=== PATIENT | male | born 1995 | race African-American/Black ===

== ENCOUNTER 2021-08-25 15:26 | Emergency (ER) | payer SELFPAY ==
[2021-08-25] MEDS ORDERED: Pantoprazole 40 MG in Sodium Chloride 0.9% 10 ML IV ONE (15:40)
[2021-08-25] MEDS ORDERED: Sodium Chloride 0.9% 10 ML Syringe FLUSH PRN (15:40)
[2021-08-25] MEDS ORDERED: Sodium Chloride 0.9% 2.5 ML Syringe FLUSH PRN (15:40)
[2021-08-25] MEDS ORDERED: Ondansetron 4 MG/2 ML SDV IVPUSH ONE (15:40)
--- NOTE | 2021-08-25 15:45 | EDM.PDOC ---
<Kilo Puri - Last Filed: 08/25/21 19:13> ED HPI GENERAL MEDICAL PROBLEM - General Stated Complaint: CHEST PAIN Time Seen by Provider: 08/25/21 15:30 - History of Present Illness INITIAL COMMENTS - FREE TEXT/NARRATIVE: History of present illness: [] Patient has not been throwing up for several days. Everything he eats he throws up. He has intermittent sharp pain in his chest that lasts only briefly and just is secondary to that happens once a day. He self throws up 3-4 times a day for 4 days. He had a problem similar a few years ago and had a GI work-up and said he had very bad stomach problems and was on medicine for it for a short time. He says he passed out because of it and thinks that was because of blood loss from his stomach. The patient does not smoke. Patient does not drink alcohol. Patient lives in [place], [address] is currently [place] from which he drives to [place] to work. He has been in town for 2 weeks. Review of systems: As per history of present illness and below otherwise all systems reviewed and negative. Past medical history: As per history of present illness and as reviewed below otherwise noncontributory. Surgical history: As per history of present illness and as reviewed below otherwise noncontributory. Social history: No reported history of drug or alcohol abuse. Family history: As per history of present illness and as reviewed below otherwise noncontributory. Physical exam: Constitutional - well developed, well-nourished and in no acute distress HEENT - normocephalic, no evidence of trauma - external nose and mouth normal - no mass in neck and no JVD - mucosae moist EYES - full EOM, PERRL, no icterus - no evidence of inflammation, injection, or drainage Respiratory - no respiratory distress, equal bilateral expansion, lungs clear to auscultation and no abnormal lung sounds Cardiovascular - Regular Rhythm with S1 and S2 appreciated and no murmur, gallop or rub. GI -tender epigastrium no guarding rebound no distention no organomegaly.-Bowel sounds are normal. Musculoskeletal no gross deformity of long bones or joints - no tenderness, swelling or edema Neurologic - Alert and oriented times four - CN II-XII grossly intact - motor sensory and coordination symmetrically normal Psychiatric - appropriate mood and affect with normal thought content Hematologic - No petechiae or purpura - mucosa appropriate color and sclera not pale - normal nail bed color and refill Integument - no rash or evidence of trauma - normal turgor Diagnostics: [] Therapeutics: [] Impression: [] Plan: [] Definitive disposition and diagnosis as appropriate pending reevaluation and review of above. chest Pain Score (Numeric/FACES): 3 - Related Data Allergies Allergy/AdvReac Type Severity Reaction Status Date / Time No Known Allergies Allergy Verified 08/25/21 15:32 Home Meds: Home Meds Colchicine 0.6 mg PO BID #180 capsule 08/25/21 [Rx] Ibuprofen 600 mg PO TID 14 Days #42 tablet 08/25/21 [Rx] Pantoprazole Sodium [Protonix] 40 mg PO DAILY #60 tablet. 08/25/21 [Rx] #1 Interpretation EKG Interpretation Comments: EKG done 08/25/2021 at 3:54 PM shows a sinus rhythm with a heart rate of 50 ND interval 156 [place] 77 late transition R wave with nonspecific ST elevation in early precordial leads. No prior for comparison. Impression cannot rule out recent infarct in the septal area. Course - Re-Assessments/Exams Free Text/Narrative Re-Assessment/Exam: 08/25/21 19:13 I discussed the case with [facility] and they do not have a bed for the patient. [facility] [place] [facility] for the patient. I discussed the case with Dr. Dong at [facility] in [place] and he had me send a copy of the EKG. Looking at the EKG and taking into consideration the patient low risk Dr. Dong felt this is most likely pericarditis and not an acute non-STEMI. He wants the patient to be checked for a repeat troponin II hours after the first. If this is not rising he wants the patient placed on colchicine 0.6 mg twice daily for 3 months ibuprofen 600 mg 3 times daily for 2 weeks and followed by cardiology. He does not want the patient admitted. I turned the patient over to my partner at the end of my shift. Departure - Departure Disposition: Home, Self-Care 01 Condition: Good Clinical Impression: Pericarditis - Discharge Information Prescriptions: Colchicine 0.6 mg PO BID #180 capsule Ibuprofen 600 mg PO TID 14 Days #42 tablet Pantoprazole Sodium [Protonix] 40 mg PO DAILY #60 tablet. Instructions: Pericarditis Referrals: PCP,None [Primary Care Provider] - Additional Instructions: You should take colchicine for 3 months ibuprofen for 2 weeks and you need to take Prilosec, Protonix or some such medicine to help prevent excess acid production in your stomack. A prescription for which was sent to the pharmacy. You need to take antacids ad senia. if you have stomach pain. You need to follow- up with cardiology promptly to have an echocardiogram. This can be arranged locally. [facility] - cardiology [address] [place], [place] [id number] If you need primary care you might try the following [facility] - Primary Care [address] [place] [id number] [address] The following information is given to patients seen in the emergency department who are being discharged to home. This information is to outline your options for follow-up care. We provide all patients seen in our emergency department with a follow-up referral. The need for follow-up, as well as the timing and circumstances, are variable depending upon the specifics of your emergency department visit. If you don't have a primary care physician on staff, we will provide you with a referral. We always advise you to contact your personal physician following an emergency department visit to inform them of the circumstance of the visit and for follow-up with them and/or the need for any referrals to a consulting specialist. The emergency department will also refer you to a specialist when appropriate. This referral assures that you have the opportunity for follow-up care with a specialist. All of these measure are taken in an effort to provide you with optimal care, which includes your follow-up. Under all circumstances we always encourage you to contact your private physician who remains a resource for coordinating your care. When calling for follow-up care, please make the office aware that this follow-up is from your recent emergency room visit. If for any reason you are refused follow-up, please contact the [facility] Emergency Department at and asked to speak to the emergency department charge nurse. <Earnest Sandoval - Last Filed: 08/25/21 20:06> ED ROS GENERAL - Review of Systems Review Of Systems: See Below ED EXAM, GENERAL - Physical Exam Exam: See Below Course - Vital Signs Last Recorded V/S: Last Vital Signs Temp 97 F 08/25/21 15:33 Pulse 92 08/25/21 19:47 Resp 18 08/25/21 19:47 BP 120/63 08/25/21 19:47 Pulse Ox 98 08/25/21 19:47 - Orders/Labs/Meds Orders: Active Orders 24 hr Category Date Time Status Heparin Sodium/0.45% NaCl [Heparin 25,000 Units in 1/2 Med 08/25/21 18:22 Active NS 500 ML] 500 ml IV STAT Sodium Chloride 0.9% [Saline Flush] Med 08/25/21 15:40 Active 10 ml FLUSH ASDIRECTED PRN Sodium Chloride 0.9% [Saline Flush] Med 08/25/21 15:40 Active 2.5 ml FLUSH ASDIRECTED PRN Saline Lock Insert [OM.PC] Stat Oth 08/25/21 15:40 Ordered Medication Orders Heparin Sodium/Sodium Chloride (Heparin 25,000 Units In 1/2 Ns 500 Ml) 500 mls @ 28.44 mls/hr IV STAT STA Stop: 08/26/21 11:56 Last Admin: 08/25/21 18:50 Dose: 15 units/kg/hr, 28.44 mls/hr Documented by: VINICIO Cosigned by: [id number] Sodium Chloride (Sodium Chloride 0.9% 10 Ml Syringe) 10 ml FLUSH ASDIRECTED PRN PRN Reason: Keep Vein Open Last Admin: 08/25/21 16:38 Dose: 10 ml Documented by: CHASE Sodium Chloride (Sodium Chloride 0.9% 2.5 Ml Syringe) 2.5 ml FLUSH ASDIRECTED PRN PRN Reason: Keep Vein Open Last Admin: 08/25/21 16:37 Dose: 2.5 ml Documented by: BLANMEG Labs: Laboratory Tests 08/25/21 08/25/21 08/25/21 Range/Units 16:30 16:30 18:01 WBC 6.73 (4.0-11.0) K/uL RBC 5.38 (4.50-5.90) M/uL Hgb 15.5 (13.0-17.0) g/dL Hct 46.8 (38.0-50.0) % MCV 87.0 (80.0-98.0) fL MCH 28.8 (27.0-32.0) pg MCHC 33.1 (31.0-37.0) g/dL RDW Std Deviation 40.6 (28.0-62.0) fl RDW Coeff of Nagi 13 (11.0-15.0) % Plt Count 221 (150-400) K/uL MPV 10.10 (7.40-12.00) fL Neut % (Auto) 58.2 (48.0-80.0) % Lymph % (Auto) 30.0 (16.0-40.0) % [place] % (Auto) 11.3 (0.0-15.0) % Eos % (Auto) 0.4 (0.0-7.0) % Baso % (Auto) 0.1 (0.0-1.5) % Neut # (Auto) 3.9 (1.4-5.7) K/uL Lymph # (Auto) 2.0 (0.6-2.4) K/uL [place] # (Auto) 0.8 (0.0-0.8) K/uL Eos # (Auto) 0.0 (0.0-0.7) K/uL Baso # (Auto) 0.0 (0.0-0.1) K/uL Nucleated RBC % 0.0 /100WBC Nucleated RBCs # 0 K/uL APTT (18.6-31.3) SEC Sodium 140 (136-148) mmol/L Potassium 3.9 (3.5-5.1) mmol/L Chloride 101 (98-107) mmol/L Carbon Dioxide 24.7 (21.0-32.0) mmol/L BUN 13 (7.0-18.0) mg/dL Creatinine 1.1 (0.8-1.3) mg/dL Est Cr Clr Drug Dosing 93.47 mL/min Estimated GFR (MDRD) > 60.0 ml/min Glucose 84 (74-106) mg/dL Calcium 8.9 (8.5-10.1) mg/dL Total Bilirubin 0.6 (0.2-1.0) mg/dL AST 52 H (15-37) IU/L ALT 60 (14-63) IU/L Alkaline Phosphatase 93 (46-116) U/L Troponin I 0.338 H* (0.000-0.056) ng/mL Total Protein 7.8 (6.4-8.2) g/dL Albumin 3.9 (3.4-5.0) g/dL Globulin 3.9 (2.6-4.0) g/dL Albumin/Globulin Ratio 1.0 (0.9-1.6) Lipase 54 L (73-393) U/L Urine Opiates Screen (NEGATIVE) Ur Oxycodone Screen (NEGATIVE) Urine Methadone Screen (NEGATIVE) Ur Barbiturates Screen (NEGATIVE) Ur Phencyclidine Scrn (NEGATIVE) Ur Amphetamine Screen (NEGATIVE) U Methamphetamines Scrn (NEGATIVE) U Benzodiazepines Scrn (NEGATIVE) U Cocaine Metab Screen (NEGATIVE) U Marijuana (THC) Screen (NEGATIVE) SARS-CoV-2 RNA (ADAL) NEGATIVE (NEGATIVE) 08/25/21 08/25/21 08/25/21 Range/Units 18:03 18:34 19:19 WBC (4.0-11.0) K/uL RBC (4.50-5.90) M/uL Hgb (13.0-17.0) g/dL Hct (38.0-50.0) % MCV (80.0-98.0) fL MCH (27.0-32.0) pg MCHC (31.0-37.0) g/dL RDW Std Deviation (28.0-62.0) fl RDW Coeff of Nagi (11.0-15.0) % Plt Count (150-400) K/uL MPV (7.40-12.00) fL Neut % (Auto) (48.0-80.0) % Lymph % (Auto) (16.0-40.0) % [place] % (Auto) (0.0-15.0) % Eos % (Auto) (0.0-7.0) % Baso % (Auto) (0.0-1.5) % Neut # (Auto) (1.4-5.7) K/uL Lymph # (Auto) (0.6-2.4) K/uL [place] # (Auto) (0.0-0.8) K/uL Eos # (Auto) (0.0-0.7) K/uL Baso # (Auto) (0.0-0.1) K/uL Nucleated RBC % /100WBC Nucleated RBCs # K/uL APTT 27.2 (18.6-31.3) SEC Sodium (136-148) mmol/L Potassium (3.5-5.1) mmol/L Chloride (98-107) mmol/L Carbon Dioxide (21.0-32.0) mmol/L BUN (7.0-18.0) mg/dL Creatinine (0.8-1.3) mg/dL Est Cr Clr Drug Dosing mL/min Estimated GFR (MDRD) ml/min Glucose (74-106) mg/dL Calcium (8.5-10.1) mg/dL Total Bilirubin (0.2-1.0) mg/dL AST (15-37) IU/L ALT (14-63) IU/L Alkaline Phosphatase (46-116) U/L Troponin I 0.349 H* (0.000-0.056) ng/mL Total Protein (6.4-8.2) g/dL Albumin (3.4-5.0) g/dL Globulin (2.6-4.0) g/dL Albumin/Globulin Ratio (0.9-1.6) Lipase (73-393) U/L Urine Opiates Screen NEGATIVE (NEGATIVE) Ur Oxycodone Screen NEGATIVE (NEGATIVE) Urine Methadone Screen NEGATIVE (NEGATIVE) Ur Barbiturates Screen NEGATIVE (NEGATIVE) Ur Phencyclidine Scrn NEGATIVE (NEGATIVE) Ur Amphetamine Screen NEGATIVE (NEGATIVE) U Methamphetamines Scrn NEGATIVE (NEGATIVE) U Benzodiazepines Scrn NEGATIVE (NEGATIVE) U Cocaine Metab Screen NEGATIVE (NEGATIVE) U Marijuana (THC) Screen NEGATIVE (NEGATIVE) SARS-CoV-2 RNA (ADAL) (NEGATIVE) Meds: Medications Generic Name Dose Route Start Last Admin Trade Name Freq PRN Reason Stop Dose Admin Heparin Sodium/Sodium Chloride 500 mls @ 28.44 mls/hr 08/25/21 18:22 08/25/21 18:50 Heparin 25,000 Units In 1/2 Ns 500 Ml IV 08/26/21 11:56 15 units/kg/hr STAT STA 28.44 mls/hr Administration 15 UNITS/KG/HR Sodium Chloride 10 ml 08/25/21 15:40 08/25/21 16:38 Sodium Chloride 0.9% 10 Ml Syringe FLUSH 10 ml ASDIRECTED PRN Administration Keep Vein Open Sodium Chloride 2.5 ml 08/25/21 15:40 08/25/21 16:37 Sodium Chloride 0.9% 2.5 Ml Syringe FLUSH 2.5 ml ASDIRECTED PRN Administration Keep Vein Open Discontinued Medications Generic Name Dose Route Start Last Admin Trade Name Freq PRN Reason Stop Dose Admin Pantoprazole Sodium 40 mg/ 10 mls @ 300 mls/hr 08/25/21 15:40 08/25/21 16:39 Sodium Chloride IV 08/25/21 15:41 300 mls/hr NOW ONE Administration Ondansetron HCl 4 mg 08/25/21 15:40 08/25/21 16:39 Ondansetron 4 Mg/2 Ml Sdv IVPUSH 08/25/21 15:41 4 mg ONETIME ONE Administration Departure - Departure Time of Disposition: 20:05 - Discharge Information *PRESCRIPTION DRUG MONITORING PROGRAM REVIEWED*: Not Applicable *COPY OF PRESCRIPTION DRUG MONITORING REPORT IN PATIENT YANET: Not Applicable Sepsis Event Note (ED) - Focused Exam Vital Signs: Vital Signs Temp Pulse Resp BP Pulse Ox 08/25/21 19:47 92 18 120/63 98 08/25/21 18:52 72 15 123/70 98 08/25/21 17:49 68 114/52 L 100 08/25/21 16:45 56 L 116/47 L 100 08/25/21 15:45 56 L 128/74 98 08/25/21 15:33 97 F 67 20 133/61 99 - Assessment/Plan Assessment:: Patient received in signout from Dr. Puri at 7 PM. Plan was for repeat troponin at 2 hours and then repeat discussion with Dr. Dong the building principal at [facility] in [place]. Repeat troponin is 0.349. I discussed this with Dr. Dong in full. He feels that this is within the standard variation of the test and that this represents a stable troponin and not an increasing troponin. For this reason Dr. Dong recommends discharge with the pericarditis treatment the colchicine and ibuprofen and follow-up with cardiology as an outpatient for an echocardiogram. Patient remains hemodynamically stable and has been discharged to follow-up as above.
--- NOTE | 2021-08-25 16:50 | CR ---
INDICATION: Chest pain. TECHNIQUE: PA and lateral. COMPARISON: None. FINDINGS: Lungs low in volume, clear. No pleural effusion or pneumothorax. Heart size and pulmonary vasculature within normal limits. No obvious rib fracture or other significant osseous abnormality. IMPRESSION: Negative chest, allowing for shallow inspiration. Dictated by Emeka Meadows MD @ 08/25/2021 4:48:38 PM (Electronically Signed)
[2021-08-25 17:47] LABS: BLOOD UREA NITROGEN,BUN 13 mg/dL (7.0-18.0); CARBON DIOXIDE,CO2 24.7 mmol/L (21.0-32.0); CHLORIDE,CL 101 mmol/L (98-107); GLUCOSE RANDOM 84 mg/dL (74-106); LIPASE 54 U/L (73-393); POTASSIUM,K 3.9 mmol/L (3.5-5.1); SODIUM,NA 140 mmol/L (136-148)
[2021-08-25] MEDS ORDERED: Heparin Sodium/0.45% NaCl 500 ML IV STA (18:22)
== END 2021-08-25 20:27 | disposition home or self-care (01) ==
LOC: MW.ED 15:26
DX: I31.9 Disease of pericardium, unspecified (principal); Z20.822 Contact with and (suspected) exposure to COVID-19
CPT/HCPCS: 36415; 71045; 80053; 80305; 83690; 84484; 85025; 85730; 87635; 93005; 96374; 96375; 99285; C9113; J1644; J2405; U0002